=== PATIENT | female | born 1955 | race Caucasian/White ===

== ENCOUNTER 2025-04-14 11:02 | Day surgery (SDC) | payer MEDICARE, OTHER, SELFPAY ==
[2025-04-14] VITALS (9 sets, daily range): BP systolic 89–109; BP diastolic 64–76; PULSE 57–79; RESP 16; TEMP 36.1–37.1; O2SAT 95–100; BMI 18.8
[2025-04-14] MEDS: Lactated Ringers 1,000 ML 15 ML IV (11:32)
--- NOTE | 2025-04-14 11:47 | PRE.ANES_ITS ---
ASA Classification* ASA Classification ASA Classification: 2 Assessment & Plan Anesthesia* Anesthesia Assessment Anesthesia Assessment: Discussed sedation and/or anesthesia options, risks, benefits, and alternatives with patient/parents/legal guardian/POA. Questions invited. The patient/parents/legal guardian/POA seems to understand and agrees to proceed with anesthesia plan. Reviewed the physical assessment, medical history, allergy history and patient home medications list prior to surgery/procedure/anesthetic and documented any changes. Performed airway and anesthesia risk assessments. Anesthesia Type Anesthesia Type: MAC History Source History Obtained from:: Patient and Chart Anesthesia Focused Assessment* Temperature: 98.8 F Pulse Rate: 79 Blood Pressure: 108/76 Respiratory Rate: 16 Pulse Ox: 98 Oxygen Delivery Method: Room Air Airway Assessment Mouth opens: >3 cm Mallampati Score: II Teeth Condition: Caps/Crowns (Patient has a couple crowns. 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 When Was Last Pacemaker Check QUESTION #4 FULL TEXT: You/Your Family Experience fever (hyperthermia) with Anesthesia Last Oral Intake Last Oral intake: Last Oral Intake NPO since 20:00 04/14/25 11:22 Meds taken in AM with sips of No 04/14/25 11:22 water? 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 cotta roofer helper Female Yes 04/08/25 09:56 HX of Motion Sickness No 04/08/25 09:56 HX of N/V After Surgery No 04/08/25 09:56 Non-Smoker Yes 04/08/25 09:56 Duration of Surgery greater No 04/08/25 09:56 than 60 minutes Number of Risk Factors 2 04/08/25 09:56 PONV Score Moderate Risk 04/08/25 09:56 Height & Weight Height & Weight: Anesthesia: Height & Weight Height 5 ft 6 in 04/14/25 11:22 Weight: 53 kg 04/14/25 11:22 Body Mass Index (BMI) 18.8 04/14/25 11:22 Respiratory Assessment Respiratory Assessment - terra cotta roofer helper: Respiratory Tract Infection Hx - 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 Has anyone observed you stop No 04/08/25 09:56 breathing during sleep? STOP Results Negative 04/08/25 09:56 QUESTION #5 FULL TEXT : Do you snore loudly (louder than talking or can be heard through closed doors)? 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 Specify any problems Hx of Preganancy in last 3 No 04/08/25 09:56 Months Nurse Filling Out Transfusion VCHRISTIN 04/08/25 09:56 & Questions: Date: 04/08/25 04/08/25 09:56 Time: 09:57 04/08/25 09:56 Patient unable to answer at this time (ie. confused, unrespo /Reproduction History /Reproductive History - terra cotta roofer helper: /Reproductive Hx- terra cotta roofer helper Hx Now No 04/08/25 09:56 Gestational Age (in weeks): EDC: Hx Hx Para Hx Section SAB No 04/08/25 09:56 Does the father of the baby or his family experience fever w Father of the baby Malignant Hypertension history comment Active Medications Active Medications: Current Medications Generic Name Dose Route Start Last Admin Trade Name Freq PRN Reason Stop Dose Admin Lactated Ringer's 1,000 mls @ 15 mls/hr 04/14/25 11:15 04/14/25 11:32 IV 15 mls/hr .Q48H LUCIE Administration PFSH Medical History Wears glasses Post-menopausal Gastric reflux Non-smoker Right buttock pain Osteoporosis Mixed hyperlipidemia Facial skin lesion Eustachian tube dysfunction Dysphagia Deafness in left ear Anxiety Allergic rhinitis GERD (gastroesophageal reflux disease) Home Medications Medication Instructions Recorded Last Taken Type cholecalciferol (vitamin D3) 250 250 mcg PO QDAY 01/26 Unknown History mcg (10,000 unit) tablet denosumab 60 mg/mL subcutaneous 60 mg subcut [id number] 01/26/25 Unknown History syringe (Prolia) fluoxetine 40 mg capsule 40 mg PO QDAY 01/26/25 Unkno wn History omeprazole 20 mg capsule,delayed 20 mg PO QDAY 5 Unknown History release Allergy/AdvReac Type Severity Reaction Status Date / Time sulfamethoxazole Allergy Intermediate Other Verified 04/14/25 11:21 Family History Father Colon cancer Kidney disease Mother Dementia Brother Hypertension Surgical History History of ear surgery History of tympanoplasty History of tonsillectomy Social History Smoking Status: Never smoker alcohol intake: never what type of physical activity do you participate in: walking Review of Systems (Anesthesia) ROS Narrative System reviewed and no additional complaints, except as documented.
--- NOTE | 2025-04-14 12:00 | EGD_PTH ---
PATIENT: JONATHAN CASTANO LOC: EN U#:[id number] AGE/SX: 69/F ROOM: RE04/14/[address]: Dr. Jean Pierre Jrodan DO : 1955 BED: DIS: 04/14/2025 SPEC #: [id number] RECD: 04/14/25 12:56 STATUS: CAREY REDeneen #: [id number] KE: 04/14/25 12:[address]: Jean Pierre Jordan DEPT: SURGICAL PATHOLOGY RECD BY: Amalia Sim ENTERED: 04/14/25 14:19 SP TYPE: EGD BIOPSY OT DR: Cleopatra Sommers, [employer] Tissues: A - Duodenum, NOS B - Gastric mucous membrane C - Esophagus, NOS D - Esophagus, NOS Procedures: Surgery Specimen Level IV HEADER OPERATION: EGD, biopsy, dilation PRE-OP DIAGNOSIS: GERD TISSUE SUBMITTED: A- Duodenum biopsy, B- Gastric body biopsy, C- Distal esophagus biopsy, D- Random esophagus biopsy MICROSCOPIC DIAGNOSIS A. Small intestine, duodenum, biopsy: - Ru gland hyperplasia. - Negative for increased intraepithelial lymphocytes. B. Stomach, body, biopsy: - Oxyntic mucosa with no specific pathologic change. - Negative for Helicobacter-like organisms (H&E). C. Esophagus, distal, biopsy: - Cardio-oxyntic mucosa negative for goblet cell metaplasia. - Negative for dysplasia. - No squamous mucosa observed. D. Esophagus, random, biopsy: - Squamous mucosa with reactive changes. - Up to 13 eosinophils per high power field. MICROSCOPIC DESCRIPTION Slides are reviewed. GROSS DESCRIPTION A. Received in fixative is one container labeled with the patient's name and designated "Duodenum biopsy." The specimen consists of two irregular fragments of aguilar tissue, each measuring 0.4 cm. The specimen is totally submitted in one cassette. B. Received in fixative is one container labeled with the patient's name and designated "Gastric body biopsy." The specimen consists of two irregular fragments of aguilar tissue that measure 0.4 and 0.5 cm. The specimen is totally submitted in one cassette. C. Received in fixative is one container labeled with the patient's name and designated "Distal esophagus biopsy." The specimen consists of two irregular fragments of aguilar tissue, each measuring 0.3 cm. The specimen is totally submitted in one cassette. D. Received in fixative is one container labeled with the patient's name and designated "Random esophagus biopsy." The specimen consists of two irregular fragments of aguilar tissue, each measuring 0.6 cm. The specimen is totally submitted in one cassette. TN 04/14/2025 CPT:58475a9
--- NOTE | 2025-04-14 12:07 | HP.PCM_ITS ---
HPI - General General Date of Admission: 04/14/25 Date of Service: 04/14/25 Chief Complaint: GERD HPI Narrative JONATHAN CASTANO, is a 70-year-old female with a known history of gastroesophageal reflux disease (GERD), with intermittent symptoms occurring over the past year. She was placed on omeprazole once a day by her primary care physician and notes some improvement in her heartburn. However, she continues to experience throat clearing and heartburn. Her weight has remained stable throughout this time. She has no other associated symptoms such as dry eyes or dry mouth, which might suggest a systemic disease. She has no family history of esophageal cancer, which helps risk stratification. She has never smoked and does not consumealcoholic beverages on a daily basis.Pt reports that she is currently taking Omeprazole 20mg daily and states that this has been helpful for her HB, but will still occasionally have breakthrough symptoms. Pt reports that she has never had an EGD before. [facility] Medical History (Updated 04/14/25 @ 12:[address] Jean Pierre Jordan, DO) Wears glasses Post-menopausal Gastric reflux Non-smoker Right buttock pain Osteoporosis Mixed hyperlipidemia Facial skin lesion Eustachian tube dysfunction Dysphagia Deafness in left ear Anxiety Allergic rhinitis GERD (gastroesophageal reflux disease) Home Medications Medication Instructions Recorded Last Taken Type cholecalciferol (vitamin D3) 250 250 mcg PO QDAY 01/26 Unknown History mcg (10,000 unit) tablet denosumab 60 mg/mL subcutaneous 60 mg subcut [id number] 01/26/25 Unknown History syringe (Prolia) fluoxetine 40 mg capsule 40 mg PO QDAY 01/26/25 Unkno wn History omeprazole 20 mg capsule,delayed 20 mg PO QDAY 5 Unknown History release Allergy/AdvReac Type Severity Reaction Status Date / Time sulfamethoxazole Allergy Intermediate Other Verified 04/14/25 11:21 Family History Father Colon cancer Kidney disease Mother Dementia Brother Hypertension Surgical History History of ear surgery History of tympanoplasty History of tonsillectomy Social History Smoking Status: Never smoker alcohol intake: never what type of physical activity do you participate in: walking ROS Constitutional Constitutional: Denies fatigue, fever(s), poor appetite, weight gain or weight loss Gastrointestinal Gastrointestinal: Denies belching, bloating, change in bowel habits, change in stool character, chewing difficulty, coffee ground emesis, constipation, cramping, diarrhea, dyspepsia, dysphagia, early satiety, excessive flatus, fecal incontinence, heartburn, hematemesis, hematochezia, hemorrhoids, loose stools, melena, nausea, odynophagia, rectal bleeding, tenesmus, vomiting or weight changes Vital Signs Vital Signs Vital Signs: 04/14/25 11:22 04/14/25 11:22 04/14/25 11:26 Temperature 98.8 F Temperature Source Temporal Pulse Rate 79 Respiratory Rate 16 Respiratory Pattern Normal Blood Pressure 108/76 Blood Pressure Mean 86 Blood Pressure Source Monitor Blood Pressure Position Sitting Blood Pressure Location Left Arm Baseline BP 108/76 Pulse Ox 98 Oxygen Delivery Method Room Air 04/14/25 11:55 Temperature 98.8 F Temperature Source Pulse Rate 79 Respiratory Rate 16 Respiratory Pattern Blood Pressure 108/76 Blood Pressure Mean Blood Pressure Source Blood Pressure Position Blood Pressure Location Baseline BP Pulse Ox 98 Oxygen Delivery Method Room Air Weight Weight: 116 lb 13.52 oz Body Mass Index (BMI) 18.8 Physical Exam Const alert, oriented x3, no apparent distress and healthy appearing General Appearance: cooperative GI normal to inspection, nondistended, normoactive bowel sounds, soft to palpation, non-tender and non-distended Percussion: normal to percussion Rectal Exam: deferred Assessment & Plan Assessment/Plan (1) GERD (gastroesophageal reflux disease): PLAN: Assessment and Plan Assessment and Plan (1) Gastroesophageal reflux disease: Plan: Assessment 1. Gastroesophageal Reflux Disease (GERD) with incomplete response to once-daily omeprazole: The patient's persistent heartburn and throat-clearing, despite medical therapy, suggest that her GERD is not fully controlled. Differential diagnoses include: * Laryngopharyngeal reflux (LPR): Often called "silent reflux," LPR involves stomach acid reaching the throat and can present with throat-clearing without significant heartburn. This is a common cause of persistent throat irritation. * Persistent GERD: The current dosage of omeprazole may be insufficient or require a twice-daily regimen. * Other causes for throat clearing: These could include allergies, postnasal drip, or vocal cord issues unrelated to reflux. * Incomplete symptom management: The patient's remaining symptoms may be aggravated by lifestyle factors that still need to be addressed, such as diet or meal timing. 2. Osteoporosis: * Omeprazole concerns: It is important to consider the patient's concurrent diagnosis of osteoporosis. Long-term use of proton pump inhibitors (PPIs) like omeprazole has been linked to an increased risk of osteoporosis-related fractures, particularly with high-dose and long-term therapy. * Risk assessment: Given the patient's age and history, the risks and benefits of continued PPI therapy should be carefully evaluated. Plan 1. Diagnostic Plan: * Endoscopy: An upper GI endoscopy is necessary to evaluate the esophagus, stomach, and duodenum, given the need for evaluation of the upper GI tract. This will help determine the severity of reflux, rule out complications like esophagitis or Corado's esophagus, and assess for other potential issues. * Medication adjustment: * Review omeprazole regimen: Consider increasing omeprazole to twice daily to better control symptoms, especially if LPR is suspected. Alternatively, a trial of an H2 brandi may be considered, depending on the endoscopy findings. * Minimize PPI duration: As PPIs may be linked to weakened bones in long-term users, efforts should be made to use the lowest effective dose for the shortest duration necessary, especially given her osteoporosis. * Follow-up: Re-evaluate in 4–6 weeks after the endoscopy and medication adjustment. 2. Non-Pharmacologic Management: * Dietary modifications: Advise the patient to avoid trigger foods such as fatty foods, caffeine, chocolate, and spicy foods. * Lifestyle changes: Recommend she avoid lying down within 2–3 hours of eating and elevate the head of her bed. 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 Ensure the patient is on appropriate calcium and vitamin D supplementation and has had recent bone density screening. 3. Patient Education: * We reviewed the connection between her symptoms and GERD, explaining that throat clearing can be an extra-esophageal symptom (LPR) and may require a different approach. * We discussed the plan for endoscopy and the reasons for it. * We also discussed the potential link between long-term omeprazole use and osteoporosis, and the need for ongoing monitoring and calcium/vitamin D supplementation. ]
--- NOTE | 2025-04-14 12:46 | OP.PROVAT_ITS ---
04/14/2025 Cleopatra Sommers Re : Upper GI endoscopy procedure for Carisa Méndez Dear Tootie This procedure was performed on Monday, April 14, 2025. My impressions and recommendations are as follows: Impressions : - Esophageal mucosal changes consistent with eosinophilic esophagitis. - Erythematous mucosa in the gastric body. Biopsied. - Erythematous duodenopathy. - Biopsies were taken with a cold forceps for evaluation of eosinophilic esophagitis. Recommendations : - Discharge patient to home. - Resume previous diet. - Continue present medications. - Await pathology results. My findings are described in the full procedure note, which is enclosed. If I can be of further assistance, please feel free to contact me at . Sincerely, Jean Pierre Jordan, 04/14/2025 12:45:34 PM This report has been signed electronically.
--- NOTE | 2025-04-14 12:46 | OP.EGD_ITS ---
Patient Name: Carisa Méndez Procedure Date: 04/14/2025 12:16 PM Date of : 1955 Age: 69 Procedure: Upper GI endoscopy Indications: Epigastric abdominal pain, Functional Dyspepsia, Dysphagia, Suspected esophageal reflux Providers: Jean Pierre Jordan DO Referring MD: Cleopatra Sommers Medicines: Monitored Anesthesia Care Patient Profile: This is a 69 year old female. Refer to note in patient chart for documentation of history and physical. Patient has symptoms of chronic abdominal cramping, chronic abdominal distention, acute dyspepsia, chronic heartburn, chronic nausea and chronic throat burning. Complications: No immediate complications. Procedure: Pre-Anesthesia Assessment: - Prior to the procedure, a History and Physical was performed, and patient medications and allergies were reviewed. The patient is competent. The risks and benefits of the procedure and the sedation options and risks were discussed with the patient. All questions were answered and informed consent was obtained. Patient identification and proposed procedure were verified by the physician in the pre-procedure area. Mental Status Examination: alert and oriented. Airway Examination: normal oropharyngeal airway and neck mobility. Respiratory Examination: clear to auscultation. CV Examination: normal. Prophylactic Antibiotics: The patient does not require prophylactic antibiotics. Prior Anticoagulants: The patient has taken no anticoagulant or antiplatelet agents. ASA Grade Assessment: II - A patient with mild systemic disease. After reviewing the risks and benefits, the patient was deemed in satisfactory condition to undergo the procedure. The anesthesia plan was to use monitored anesthesia care (MAC). Immediately prior to administration of medications, the patient was re-assessed for adequacy to receive sedatives. The heart rate, respiratory rate, oxygen saturations, blood pressure, adequacy of pulmonary ventilation, and response to care were monitored throughout the procedure. The physical status of the patient was re-assessed after the procedure. After obtaining informed consent, the endoscope was passed under direct vision. Throughout the procedure, the patient's blood pressure, pulse, and oxygen saturations were monitored continuously. The gastroscope was introduced through the mouth, and advanced to the third part of the duodenum. Small bowel enteroscopy was deemed necessary. The upper GI endoscopy was accomplished without difficulty. The patient tolerated the procedure well. Scope In: 12:27:53 PM Scope Out: 12:38:23 PM Total Procedure Duration Time 0 hours 10 minutes 30 seconds Findings: Mucosal changes including longitudinal furrows and small-caliber esophagus were found in the middle third of the esophagus and in the lower third of the esophagus. Biopsies were obtained from the proximal and distal esophagus with cold forceps for histology of suspected eosinophilic esophagitis. Verification of patient identification for the specimen was done. Estimated blood loss was minimal. Patchy mildly erythematous mucosa without bleeding was found in the gastric body. Biopsies were taken with a cold forceps for histology. Biopsies were taken with a cold forceps for Helicobacter pylori testing. Verification of patient identification for the specimen was done. Estimated blood loss was minimal. Patchy mildly erythematous mucosa without active bleeding and with no stigmata of bleeding was found in the entire duodenum. Abnormal motility was noted in the lower third of the esophagus. The cricopharyngeus was normal. There are extra peristaltic waves in the esophageal body. The distal esophagus/lower esophageal sphincter is spastic, but gives up passage to the endoscope. Impression: - Esophageal mucosal changes consistent with eosinophilic esophagitis. - Erythematous mucosa in the gastric body. Biopsied. - Erythematous duodenopathy. - Biopsies were taken with a cold forceps for evaluation of eosinophilic esophagitis. Recommendation: - Discharge patient to home. - Resume previous diet. - Continue present medications. - Await pathology results. Procedure Code(s): --- Professional --- 65808, Small intestinal endoscopy, enteroscopy beyond second portion of duodenum, not including ileum; with biopsy, single or multiple CPT copyright 2021 [employer]. All rights reserved. The codes documented in this report are preliminary and upon manager customer review may be revised to meet current compliance requirements. Jean Pierre Jordan DO 04/14/2025 12:45:34 PM This report has been signed electronically. Number of Addenda: 0 Note Initiated On: 04/14/2025 12:16 PM
--- NOTE | 2025-04-14 12:54 | PCM.POST.ANE ---
Anesthesia: Postop Eval I Current Vital Signs Temperature: 98.1 F Pulse Rate: 61 Blood Pressure: 92/64 Respiratory Rate: 16 Pulse Ox: 96 Oxygen Delivery Method: Room Air Assessment Airway patent: Yes Spontaneous unlabored respirations: Yes Mental status: Awake and Calm nausea: No Vomiting: No Anesthesia Complication: No Fluid Hydration Crystalloid volume administer (ml): 900 Total IV fluid infused: 900 Progress Note Anesthesia document: Postop Eval 1 completed: Yes
--- NOTE | 2025-04-14 20:31 | PCM.POSTANE2 ---
Anesthesia Postop Eval I Sum Postop Eval Completion status Anesthesia document: Postop Eval 1 completed: Yes Anesthesia Postop Eval I Summary Anesthesia Postop Eval I Summary: Anesthesia Postop Eval I: Assessment Summary Airway patent Yes 04/14/25 12:54 [email or web address] Spontaneous unlabored Yes 04/14/25 12:54 [email or web address] respirations Mental status Awake,Calm 04/14/25 12:54 [email or web address] nausea No 04/14/25 12:54 [email or web address] Vomiting No 04/14/25 12:54 [email or web address] Anesthesia Postop Eval I: Fluid Summary Crystalloid volume administer 900 04/14/25 12:54 [email or web address] (ml) Colloids volume administered ( ml) Blood Product volume administered (ml) Total IV fluid infused 900 04/14/25 12:54 [email or web address] Anesthesia Postop Eval I: Summary Notes Anesthesia Complication No 04/14/25 12:54 [email or web address] Anesthesia Complication Comment: Post-operative progress note Anesthesia: Postop Eval II Evaluation Mental status: Awake and Calm Pain Level: 0 nausea: No Vomiting: No Complications Anesthesia Complication: No
== END 2025-04-14 13:24 | disposition home or self-care (01) ==
LOC: EN 11:03 → AC 11:04
PROVIDERS: PCP Nurse Practitioner Primary Care; Referring Provider Nurse Practitioner Primary Care; Visit Provider Internal Medicine Gastroenterology
PROC: 0DJ08ZZ Inspection of Upper Intestinal Tract, Via Natural or Artificial Opening Endoscopic (ICD-10-PCS; CPT 43235; principal; 2025-04-14 11:55)
DX: K21.9 Gastro-esophageal reflux disease without esophagitis (principal); E78.2 Mixed hyperlipidemia; Z79.899 Other long term (current) drug therapy; F41.9 Anxiety disorder, unspecified; K30 Functional dyspepsia; K31.89 Other diseases of stomach and duodenum; K20.0 Eosinophilic esophagitis
CPT/HCPCS: 44361; 88305; C1769; J2405